=== PATIENT | female | born 1975 | race Two or more races ===

== ENCOUNTER 2017-04-29 09:13 | Emergency (ER) | payer OTHER ==
[~2017-04-29 09:13] MED LIST: ACYCLOVIR800 MG; MOTRIN600 MG PO; ONDANSETRON ODT4 M1 PO; PREDNISONE10 MG; TRAMADOL HCL50 M2 PO; VICODIN 5/500 T1 TAB PO; ZITHROMAX1 GM PO; [UNRECOGNIZED DRUG - OTHER]
[2017-04-29] MEDS ORDERED: NAPROSYN500 M1 PO (09:43)
[2017-04-29] MEDS ORDERED: IBUPROFEN600 M1 PO (10:45)
== END 2017-04-29 11:01 ==
LOC: EDMED 09:13
DX: S16.1XXA Strain of muscle, fascia and tendon at neck level, initial encounter (principal); S20.319A Abrasion of unspecified front wall of thorax, initial encounter; F17.210 Nicotine dependence, cigarettes, uncomplicated; Z88.0 Allergy status to penicillin; V49.40XA Driver injured in collision with unspecified motor vehicles in traffic accident, initial encounter; Y92.410 Unspecified street and highway as the place of occurrence of the external cause